=== PATIENT | female | born 1940 | race Caucasian/White ===

== ENCOUNTER 2018-12-04 07:07 | Emergency (ER) | payer MEDICARE, OTHER ==
[2018-12-04] MEDS ORDERED: Clindamycin 600 MG/D5W BAG(*) 600 MG/50 ML BAG IV ONE (07:36)
--- NOTE | 2018-12-04 07:38 | ED ---
Throat Pain/Nasal Congestion - HPI Summary HPI Summary: 78-year-old female presents with dental pain for the past couple days. She states she had a route canal on Friday he was started on penicillin. She states she went home and started to have swelling on right side of her jaw. She denies any shortness of breath or chest pain. No difficulty swallowing. States that the swelling has not improved. She has a history of high blood pressure. She is not diabetic. - History of Current Complaint Chief Complaint: EDDentalPain Time Seen by Provider: 12/04/18 07:17 - Allergies/Home Medications Allergies/Adverse Reactions: Allergies Allergy/AdvReac Type Severity Reaction Status Date / Time ANGELITO Inhibitors Allergy Unknown Verified 10/20/18 14:42 Reaction Details erythromycin base Allergy Itching Verified 10/20/18 14:42 oxymorphone AdvReac Intermediate severe Verified 10/20/18 14:42 itching fentanyl AdvReac Dizziness Verified 10/20/18 14:42 oxycodone AdvReac Itching Verified 10/20/18 14:42 sulfamethoxazole AdvReac Itching Verified 10/20/18 14:42 [From Bactrim] tapentadol [From Nucynta] AdvReac Itching Verified 10/20/18 14:42 trimethoprim [From Bactrim] AdvReac Itching Verified 10/20/18 14:42 PMH/Surg Hx/FS Hx/Imm Hx Endocrine/Hematology History: Denies: Hx Diabetes Cardiovascular History: Reports: Hx Hypertension - MEDICATED Denies: Hx Pacemaker/ICD Respiratory History: Reports: Hx Seasonal Allergies Denies: Hx Asthma Musculoskeletal History: Reports: Hx Arthritis, Hx Back Problems - chronic low back pain, Other Musculoskeletal History - Sprained left knee 06/19/12 Denies: Hx Rheumatoid Arthritis, Hx Osteoporosis Sensory History: Reports: Hx Hearing Aid Psychiatric History: Reports: Hx Depression, Hx Substance Abuse Denies: Hx Panic Disorder - Cancer History Hx Chemotherapy: No Hx Radiation Therapy: No - Surgical History Surgery Procedure, Year, and Place: lsp 3-4 laminectomy, t&a, Infectious Disease History: No Infectious Disease History: Denies: Traveled Outside the [place] in Last 30 Days - Family History Known Family History: Positive: Non-Contributory - Social History Alcohol Use: None Substance Use Type: Reports: None Substance Use Comment - Amount & Last Used: hydrocodone and soma and ativan Smoking Status (MU): Current Every Day Smoker Type: Cigarettes Amount Used/How Often: 1-5 cigarettes/day Have You Smoked in the Last Year: Yes Review of Systems Negative: Fever Positive: Dental Pain Negative: Chest Pain Negative: Shortness Of Breath All Other Systems Reviewed And Are Negative: Yes Physical Exam Triage Information Reviewed: Yes Vital Signs On Initial Exam: Initial Vitals Temp Pulse Resp BP Pulse Ox 98.8 F 75 16 198/94 94 12/04/18 07:08 12/04/18 07:08 12/04/18 07:08 12/04/18 07:08 12/04/18 07:08 Vital Signs Reviewed: Yes Appearance: Positive: Well-Appearing Skin: Positive: Warm, Dry Head/Face: Positive: Normal Head/Face Inspection Eyes: Positive: Normal, EOMI, NORMA, Conjunctiva Clear ENT: Positive: Normal ENT inspection, Pharynx normal, TMs normal Dental: Positive: Other - swelling to right side of jaw Neck: Positive: Supple, Nontender, No Lymphadenopathy Respiratory/Lung Sounds: Positive: Clear to Auscultation, Breath Sounds Present Cardiovascular: Positive: Normal, RRR Abdomen Description: Positive: Nontender, Soft Bowel Sounds: Positive: Present Musculoskeletal: Positive: Normal Neurological: Positive: Normal Psychiatric: Positive: Normal Diagnostics - Vital Signs Vital Signs Temp Pulse Resp BP Pulse Ox 12/04/18 07:08 98.8 F 75 16 198/94 94 - Laboratory Result Diagrams: 12/04/18 07:46 12/04/18 07:46 Lab Statement: Any lab studies that have been ordered have been reviewed, and results considered in the medical decision making process. Re-Evaluation - Re-Evaluation First Eval Re-Evaluation Time: 08:23 Comment: discussed results Second Eval Re-Evaluation Time: 08:37 Comment: will increase norvasc today as bp elevated here likely pain responds will have follow up with primary about such. patient is asymptomatic with blood pressure and do not want to lower too quickly so becomes symptomatic so will lower with the increase in norvasc today EENT Course/Dx - Course Course Of Treatment: 78-year-old female presents with dental pain for the past couple days. She states she had a route canal on Friday he was started on penicillin. She states she went home and started to have swelling on right side of her jaw. She denies any shortness of breath or chest pain. No difficulty swallowing. States that the swelling has not improved. She has a history of high blood pressure. She is not diabetic. On exam has mild swelling noted along right lower jaw. No abscess felt. We'll give dose Clinda. lab work normal. will add on clindamycin. Patient understands agrees with plan. - Differential Diagnoses Differential Diagnoses: Dental Abscess, Dental Caries, Fractured Tooth - Diagnoses Provider Diagnoses: Dental infection, Hypertension Discharge - Sign-Out/Discharge Documenting (check all that apply): Patient Departure Patient Received Moderate/Deep Sedation with Procedure: No - Discharge Plan Condition: Good Disposition: HOME Prescriptions: Clindamycin Cap(NF) [Clindamycin Cap 300 mg Cap(NF)] 300 mg PO TID #20 cap Patient Education Materials: Dental Abscess (ED) Referrals: Stephanie Cerda MD [Primary Care Provider] - Additional Instructions: add on clindamycin three times a day for 7 days take a probiotic take Tylenol every 6 hours as needed for pain follow up with dentist follow up with primary about blood pressure Return to ED if develop any new or worsening symptoms - Billing Disposition and Condition Condition: GOOD Disposition: Home
[2018-12-04 07:58] LABS: ABS Eosinophils 0.1 10^3/ul (0-0.6); ABS Lymphocytes 1.2 10^3/ul (1.0-4.8); ABS Monocytes 0.9 10^3/ul (0-0.8); ABS Neutrophils 4.8 10^3/ul (1.5-7.7); Eosinophil % 1.9 %; Hematocrit 35 % (35-47); Hemoglobin 11.6 g/dL (12.0-16.0); Lymphocyte % 16.6 %; Mean Corpuscular HGB Conc 34 g/dL (31-36); Mean Corpuscular Hemoglobin 33 pg (27-31); Mean Corpuscular Volume 98 fL (80-97); Mean Platelet Volume 7.3 fL (7.4-10.4); Nucleated Red Blood Cells % 0.1; Platelet Count 204 10^3/uL (150-450); Red Blood Count 3.54 10^6 /uL (3.70-4.87); Red Cell Distribution Width 14 % (10.5-15); White Blood Count 7.1 10^3/uL (3.5-10.8)
[2018-12-04] MEDS ORDERED: Clindamycin 600 MG IVPREMIX(* 600 MG/50 ML SDV IV ONE (08:00)
[2018-12-04 08:17] LABS: Albumin/Globulin Ratio 1.7 (1-3); BUN/Creatinine Ratio 14.5 (8-20); Calcium 8.8 mg/dL (8.6-10.3); EGFR Non-African American 106.6 (>60); Globulin 2.3 g/dL (2-4); Potassium 3.6 mmol/L (3.5-5.0); Total Bilirubin 0.5 mg/dL (0.2-1.0); Total Protein 6.3 g/dL (6.4-8.9)
[2018-12-04] MEDS ORDERED: amLODIPine TAB* 5 MG PO ONE (08:34)
[2018-12-04 09:12] VITALS: BP 195/83
== END 2018-12-04 09:12 | disposition home or self-care (01) ==
LOC: ED 07:07
DX: K08.89 Other specified disorders of teeth and supporting structures (principal); I10 Essential (primary) hypertension; M19.90 Unspecified osteoarthritis, unspecified site; F32.9 Major depressive disorder, single episode, unspecified; F17.210 Nicotine dependence, cigarettes, uncomplicated; Z88.8 Allergy status to other drugs, medicaments and biological substances; Z88.3 Allergy status to other anti-infective agents; Z88.2 Allergy status to sulfonamides
CPT/HCPCS: 36415; 80053; 83605; 85025; 96365; 99283; A9270-GY

== ENCOUNTER 2019-05-12 13:53 | Emergency (ER) | payer MEDICARE, OTHER ==
--- OUTSIDE RECORDS SUMMARY | 2019-05-12 14:08 | XMS REPORT | Continuity of Care Document ---
:1940 External Reference #:[id number] Author Name Stephanie Cerda M.D. 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 Onset: 12/19/2011 Chronic pain syndrome Stephanie Cerda M.D. Onset: 05/29/2010 Benign essential hypertension Stephanie Cerda M.D. Onset: 05/29/2010 Palpitations Chastity Myers M.D. Onset: 01/11/2015 Tobacco user Chastity Myers M.D. Onset: 02/08/2015 Chronic pulmonary heart disease Chastity Myers M.D. Onset: 08/24/2015 Mitral valve disorder Chastity Myers M.D. Onset: 08/24/2015 Hypoxemia Michaela Raman MD Onset: 10/10/2015 Obstructive sleep apnea syndrome Michaela Raman MD Onset: 12/14/2015 Glaucoma Stephanie Cerda M.D. 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, nothing since then Recreational Drug Use Never Used Drugs Tobacco Use Start: Unknown Light tobacco smoker 5 (10 or fewer cigarettes/day) Tobacco Use Start: Unknown Patient is a current 2016: down to few smoker, smokes every cigarettes a day day Smoking Status Reviewed: 05/11/19 Patient is a current 2016: down to few smoker, smokes every cigarettes a day day Exercise Type/Frequency Exercises regularly Walks everywhere -- does not own car Allergies, Adverse Reactions, Alerts Active Allergies Reaction Severity Comments Date Erythromycin RASH Moderate 09/07/2009 Oxycodone ITCHING Moderate 09/07/2009 Gareth Inhibitors angioedema Severe 01/06/2010 Medications Active Medications SIG Qnty Indications Ordering Provider Date Chantix Starting take as directed 42tabs Z72.0 [facility], 2018 Month Ion M.D. 0.5mg X 11 & 1 mg X 42 Tablets Amlodipine Besylate 1 by mouth bid 180tabs [facility], 12/16/2018 M.D. 5mg Tablets Carvedilol Take One Tablet 60tabs I10 [facility], 08/07/2015 25mg By Mouth Two M.D. Tablets Times Daily Alendronate Sodium 1 tablet once 12tabs M81.0 [facility], 07/21/2015 weekly. take on M.D. 70mg Tablets empty stomach with 8 oz water. do not eat or lie down for 30 min after taking Lorazepam take one tablet 60tabs [facility], 05/30/2011 1mg Tablets by mouth two M.D. times daily as needed *maximum of two tablets daily* Epipen 2-Ion 1 sc as needed 2units T78.40xA [facility], 04/09/2011 M.D. 0.3mg/0.3ML Solution Auto-Inject Soma 1 tablet every 8 60tabs [facility], 350mg Tablets hours as needed M.D. pt take 4-6 tabs daily Hydrocodone/Acetamin 1 tablet every 4 Unknown ophen hours as needed 10-325mg Tablets Eye Vitamins 1 by mouth every Unknown day Capsules History Medications Amlodipine Besylate 1 by mouth every [facility], 12/09/2018 - 10mg day M.D. 12/16/2018 Tablets Medications Administered in Office Medication SIG Qnty Indications Ordering Provider Date Inj, Regadenoson, 0.1 MG Manny Phelan M.D. 01/23/2015 Injection Inj, Regadenoson, 0.1 MG Chastity Myers M.D. 01/23/2015 Injection Technetium TC 99M Tetrofosmin, Manny Phelan M.D. 01/23/2015 Per Unit Dose Up To 40 Millicuries Injection Technetium TC 99M Tetrofosmin, Chastity Myers M.D. 01/23/2015 Per Unit Dose Up To 40 Millicuries Injection Immunizations CPT Code Status Date Vaccine Reaction Lot # [id number] Given 08/09/2016 Tdap - no immediate reaction [id number] Tetanus/Diptheria/Acellular noted .. hh Pertussis 66072 Given 11/20/2015 Zoster (Zostavax) 45211 Given 12/27/2014 Pneumococcal Conjugate [id number] Vaccine 13 Valent For Intramuscular Use Q2037 Given 04/21/2013 Fluvirin Im 3Yrs And Older Q2038 Given 04/13/2012 Fluzone Vaccine [id number] 19880 Given 04/10/2010 Influenza Virus 3Yrs & Over 89956 Given 03/03/2009 Influenza Virus 3Yrs & Over 07112 Given 12/22/2008 Tetanus And Diptheria (Td) For Adult Use Preservative Free 83269 Given 05/11/2007 Influenza Virus 3Yrs & Over 20383 Given 05/11/2007 Influenza Virus 3Yrs & Over 03254 Given 06/19/2006 Influenza Virus 3Yrs & Over Vital Signs Date Vital Result Comment 05/11/2019 1:41pm Height 62 inches 5'2" Weight 116.00 lb Heart Rate 74 /min BP Systolic 136 mmHg BP Diastolic 73 mmHg O2 % BldC Oximetry 96 % BMI (Body Mass Index) 21.2 kg/m2 03/05/2019 2:41pm Height 62 inches 5'2" Weight 116.00 lb Heart Rate 58 /min BP Systolic 145 mmHg BP Diastolic 71 mmHg BP Systolic Sitting 140 mmHg recheck BP Diastolic Sitting 68 mmHg recheck O2 % BldC Oximetry 95 % BMI (Body Mass Index) 21.2 kg/m2 Results Test Date Facility Test Result H/L Range Note CBC Auto 12/04/2018 [facility] White Blood 7.1 10^3/uL Normal 3.5-10.[address] [place] [address] [phone] Red Blood Count 3.54 10^6/uL Low 3.70-4.87 Hemoglobin 11.6 g/dL Low 12.0-16.0 Hematocrit 35 % Normal 35-47 Mean Corpuscular Volume 98 fL High 80-97 Mean Corpuscular Hemoglobin 33 pg High 27-31 Mean Corpuscular HGB Conc 34 g/dL Normal 31-36 Red Cell Distribution Width 14 % Normal 10.5-15 Platelet Count 204 10^3/uL Normal 150-450 Mean Platelet Volume 7.3 fL Low 7.4-10.4 Abs Neutrophils 4.8 10^3/uL Normal 1.5-7.7 Abs Lymphocytes 1.2 10^3/uL Normal 1.0-4.8 Abs Monocytes 0.9 10^3/uL High 0-0.8 Abs Eosinophils 0.1 10^3/uL Normal 0-0.6 Abs Basophils 0.0 10^3/uL Normal 0-0.2 Abs Nucleated RBC 0.0 10^3/uL Granulocyte % 68.2 % Lymphocyte % 16.6 % Monocyte % 12.9 % Eosinophil % 1.9 % Basophil % 0.4 % Nucleated Red Blood Cells % 0.1 Comp Metabolic 12/04/2018 [facility] Sodium 138 mmol/L Normal 135-[address] [place] [address] [phone] Potassium 3.6 mmol/L Normal 3.5-5.0 Chloride 102 mmol/L Normal 101-111 Co2 Carbon Dioxide 30 mmol/L Normal 22-32 Anion Gap 6 mmol/L Normal 2-11 Glucose 100 mg/dL Normal 70-100 Blood Urea Nitrogen 8 mg/dL Normal 6-24 Creatinine 0.55 mg/dL Normal 0.51-0.95 BUN/Creatinine Ratio 14.5 Normal 8-20 Calcium 8.8 mg/dL Normal 8.6-10.3 Total Protein 6.3 g/dL Low 6.4-8.9 Albumin 4.0 g/dL Normal 3.2-5.2 Globulin 2.3 g/dL Normal 2-4 Albumin/Globulin Ratio 1.7 Normal 1-3 Total Bilirubin 0.50 mg/dL Normal 0.2-1.0 Alkaline Phosphatase 80 U/L Normal 34-104 Alt 8 U/L Normal 7-52 Ast 15 U/L Normal 13-39 Egfr Non- 106.6 >60 Egfr 129.0 >60 1 Laboratory test 12/04/2018 [facility] Lactic Acid 0.4 mmol/L Low 0.5-2.0 [address] [place] [address] [phone] 1 Because ethnic data is not always readily available, this report includes an eGFR for both -Americans and non- Americans. The National Kidney Disease Education Program (NKDEP) does not endorse the use of the MDRD equation for patients that are not between the ages of 18 and 70, are , have extremes of body size, muscle mass, or nutritional status, or are non- or non-. According to the National Kidney Foundation, irrespective of diagnosis, the stage of the disease is based on the level of kidney function: Stage Description GFR(mL/min/1.73 m(2)) 1 Kidney damage with normal or decreased GFR 90 2 Kidney damage with mild decrease in GFR 60-89 3 Moderate decrease in GFR 30-59 4 Severe decrease in GFR 15-29 5 Kidney failure <15 (or dialysis) 2 [facility] Severe Sepsis and Septic Shock Management Bundle Measure requires all lactic acids initially measuring >2.0 mmol/L be repeated. Procedures Date Code Description Status 05/04/2019 63320 Tangential Biopsy Of Skin, Single Lesion Completed 03/31/2019 [id number] Mammogram Completed 08/27/2016 [id number] Bone Mineral Density Test Completed 04/18/2016 [id number] Mammogram Completed 12/21/2014 [id number] Mammogram Completed 02/18/2013 [id number] Bone Mineral Density Test Completed 02/18/2013 [id number] Mammogram Completed 02/18/2012 [id number] Mammogram Completed 02/01/2011 [id number] Bone Mineral Density Test Completed 02/01/2011 [id number] Mammogram Completed 01/31/2009 [id number] Bone Mineral Density Test Completed 01/31/2009 [id number] Mammogram Completed 09/28/2008 [id number] Colonoscopy Completed 08/31/2004 [id number] Mammogram Completed 07/21/2003 [id number] Mammogram Completed 12/13/2002 [id number] Mammogram Completed Medical Devices Description No Information Available Encounters Type Date Location Provider Dx Diagnosis Office Visit 05/04/2019 Complaint Manager Dermatology Irma Arechiga, L82.1 Other seborrheic 2:30p keratosis L98.9 Disorder of the skin and subcutaneous tissue, unspecified Office Visit 11/18/2018 Pulmonology And Janessa G47.33 Obstructive sleep 3:00p [facility] Ju[facility], RN, apnea (adult) [facility] 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 05/04/2019 L82.1 Other seborrheic keratosis Irma Arechiga MD 05/04/2019 L98.9 Disorder of the skin and Irma Arechiga MD subcutaneous tissue, unspecified 03/05/2019 Z00.01 Encounter for general adult medical Stephanie Cerda M.D. examination with abnormal findings 03/05/2019 Z72.0 Tobacco use Stephanie Cerda M.D. 03/05/2019 M81.0 Age-related osteoporosis without Stephanie Cerda M.D. current pathological fracture 03/05/2019 Z12.31 Encounter for screening mammogram Stephanie Cerda M.D. for malignant neoplasm of breast 03/05/2019 L57.0 Actinic keratosis Stephanie Cerda M.D. 12/08/2018 I10 Essential (primary) hypertension Nurse Visit A 11/18/2018 G47.33 Obstructive sleep apnea (adult) Janessa Juárez DNP, RN, (pediatric) [facility]- Plan of Treatment Future Appointment(s):03/07/2020 3:00 pm - Stephanie Cer[facility].D. at [facility] - Stepahnie Cerda M.D. at [facility] 2:15 pm - Janessa Juárez DNP, RN, WET MACHINE OPERATOR-BC at [facility]05/11/2019 - Stephanie Cerda M.D.M25.552 Pain in left hipComments:We will derek you with Xray results Functional Status Description No Information Available Mental Status Description No Information Available Referrals Refer to Reason for Referral Status Appt Date Irma Arechiga MD Sent 05/04/[address] [place] [address], [place] [id number] [phone]
--- NOTE | 2019-05-12 16:17 | ED ---
Lower Extremity - HPI Summary HPI Summary: Pt is a 78 y/o F presenting to the ED with a chief complaint of L hip pain. She fell off of a curb last week and hit the ground hard. Today, she was getting an X-Ray done of her hips when she was sent here for + fracture. The X-Ray showed a small fracture on the L greater trochanter. She denies bruising or pain in the hip itself. She says its only painful if she moves her L leg, mostly in the upper lateral femur. Takes hydrocodone PRN at home. Not on blood thinners. - History of Current Complaint Chief Complaint: EDHipPelvisInjury Stated Complaint: FELL OFF CURVE Time Seen by Provider: 05/12/19 16:00 Hx Obtained From: Patient Mechanism Of Injury: Fall From A Standing Position Onset of Pain: Immediate Onset/Duration: Still Present Severity Initially: Moderate Severity Currently: Moderate Pain Intensity: 5 Pain Scale Used: 0-10 Numeric Timing: Constant, Lasting Days Location: Is Discrete @ - L outer thigh Associated Signs And Symptoms: Positive: Negative Aggravating Factor(s): Movement Alleviating Factor(s): Nothing Able to Bear Weight: Yes - Allergies/Home Medications Allergies/Adverse Reactions: Allergies Allergy/AdvReac Type Severity Reaction Status Date / Time ANGELITO Inhibitors Allergy Unknown Verified 04/27/19 14:57 Reaction Details erythromycin base Allergy Itching Verified 04/27/19 14:57 oxymorphone AdvReac Intermediate severe Verified 04/27/19 14:57 itching fentanyl AdvReac Dizziness Verified 04/27/19 14:57 oxycodone AdvReac Itching Verified 04/27/19 14:57 sulfamethoxazole AdvReac Itching Verified 04/27/19 14:57 [From Bactrim] tapentadol [From Nucynta] AdvReac Itching Verified 04/27/19 14:57 trimethoprim [From Bactrim] AdvReac Itching Verified 04/27/19 14:57 Home Medications: Home Medications Carisoprodol TAB* [Soma TAB*] 350 mg PO Q4HR PRN 05/12/19 [History Confirmed ] Carvedilol TAB* [Coreg TAB*] 25 mg PO BID 05/12/19 [History Confirmed 05/12/19] EPINEPHrine [Epipen 2-Ion] 0.3 mg IM ONCE PRN 05/12/19 [History Confirmed ] Hydrocodone/Acetamin 10325(NF [[place] 10325 (NF)] 0.5 - 1 tab PO Q4HR PRN 05/12 [History Confirmed 05/12/19] LORazepam TAB(*) [Ativan 1 MG TAB (*)] 1 mg PO BID PRN 05/12/19 [History Confirmed 05/12/19] PMH/Surg Hx/FS Hx/Imm Hx Previously Healthy: Yes Endocrine/Hematology History: Denies: Hx Diabetes Cardiovascular History: Reports: Hx Hypertension - MEDICATED Denies: Hx Pacemaker/ICD Respiratory History: Reports: Hx Seasonal Allergies Denies: Hx Asthma Musculoskeletal History: Reports: Hx Arthritis, Hx Back Problems - chronic low back pain, Hx Osteoporosis, Other Musculoskeletal History - Sprained left knee 06/19/12 Denies: Hx Rheumatoid Arthritis Sensory History: Reports: Hx Hearing Aid Psychiatric History: Reports: Hx Depression, Hx Substance Abuse Denies: Hx Panic Disorder - Cancer History Hx Chemotherapy: No Hx Radiation Therapy: No - Surgical History Surgery Procedure, Year, and Place: lsp 3-4 laminectomy. TONSILECTOMY. ADENOIDECTOMY. LT BREAST Bx Infectious Disease History: No Infectious Disease History: Denies: Traveled Outside the [place] in Last 30 Days - Family History Known Family History: Negative: Diabetes - Social History Alcohol Use: None Hx Substance Use: No Substance Use Type: Reports: None Substance Use Comment - Amount & Last Used: hydrocodone and soma and ativan Hx Tobacco Use: Yes Smoking Status (MU): Former Smoker Type: Cigarettes Amount Used/How Often: 1-5 cigarettes/day Have You Smoked in the Last Year: Yes Review of Systems Positive: Myalgia. Negative: Arthralgia - hip Negative: Bruising All Other Systems Reviewed And Are Negative: Yes Physical Exam - Summary Physical Exam Summary: Constitutional: Well-developed, Well-nourished, Alert. (-) Distressed Skin: Warm, Dry HENT: Normocephalic; Atraumatic Eyes: Conjunctiva normal Neck: Musculoskeletal ROM normal neck. (-) JVD, (-) Stridor, (-) Nuchal rigidity Cardio: Rhythm regular, rate normal, Heart sounds normal; Intact distal pulses; Radial pulses are 2+ and symmetric. (-) Murmur Pulmonary/Chest wall: Effort normal. (-) Respiratory distress, (-) Wheezes, (-) Rales Abd: Soft, (-) tenderness, (-) Distension, (-) Guarding, (-) Rebound Musculoskeletal: Pelvis: no soft tissue swelling or discoloration, no palpable widening of symphysis LLE: no deformity effusions, soft tissue swelling or discoloration, no crepitus palpated, compartments soft and compressible SILT 2+ PT pulse FROM of joints without pain Hip: Tenderness of the lateral proximal femur Knee: no ttp, able to SLR, FROM without pain Ankle: no ttp, FROM without pain, no instability Toes: no ttp, FROM without pain Lymph: (-) Cervical adenopathy Neuro: Alert, Oriented x3 Psych: Mood and affect Normal Triage Information Reviewed: Yes Vital Signs On Initial Exam: Initial Vitals Temp Pulse Resp BP Pulse Ox 98.2 F 66 16 162/81 97 05/12/19 13:58 05/12/19 13:58 05/12/19 13:58 05/12/19 13:58 05/12/19 13:58 Vital Signs Reviewed: Yes Procedures - Sedation Patient Received Moderate/Deep Sedation with Procedure: No Diagnostics - Vital Signs Vital Signs Temp Pulse Resp BP Pulse Ox 05/12/19 13:58 98.2 F 66 16 162/81 97 - Laboratory Lab Statement: Any lab studies that have been ordered have been reviewed, and results considered in the medical decision making process. Lower Extremity Course/Dx - Course Course Of Treatment: 78-year-old female presents with left hip pain after a fall 1 week ago. X-ray done outpatient shows a left greater trochanteric fracture, nondisplaced. Patient is ambulatory, minimal pain, discussed w orthopedics he states patient can go home and follow up outpatient. Patient ambulated safely in the department. No other signs of trauma - Diagnoses Provider Diagnoses: Fracture of greater trochanter of left femur Discharge ED - Sign-Out/Discharge Documenting (check all that apply): Patient Departure - Discharge Plan Condition: Stable Disposition: HOME Patient Education Materials: Hip Fracture (ED) Referrals: Stephanie Cerda MD [Primary Care Provider] - Cory Taylor MD [Medical Doctor] - 2 Days Additional Instructions: You were seen in the emergency department for a left hip fracture. Please follow up with orthopedics about this. If any studies were not completed at the time of discharge you will be called with the relevant results. Please follow up with your primary care doctor in next 2-3 days and return to emergency department for worsening pain, inability to walk, or concerning symptoms. It was a pleasure taking care of you today. - Billing Disposition and Condition Condition: STABLE Disposition: Home - Attestation Statements Document Initiated by Abyibkingsley: Yes Documenting Scribe: Cassandra Brooks Provider For Whom Marcela is Documenting (Include Credential): Trever Thomas MD. Scribe Attestation: I, Cassandra Brooks, scribed for Trever Thomas MD. on 05/13/19 at 0759. Scribe Documentation Reviewed: Yes Provider Attestation: The documentation as recorded by the scribe, Cassandra Brooks accurately reflects the service I personally performed and the decisions made by me, Trever Thomas MD. Status of Scribe Document: Viewed Consult Consult: [id number] - I spoke with Dr. Taylor who states the pt is stable to return home and follow-up with him as an outpatient.
[2019-05-12 16:59] VITALS: BP 178/89
== END 2019-05-12 16:55 | disposition home or self-care (01) ==
LOC: ED 13:53
DX: S72.112A Displaced fracture of greater trochanter of left femur, initial encounter for closed fracture (principal); W10.1XXA Fall (on)(from) sidewalk curb, initial encounter; Y92.480 Sidewalk as the place of occurrence of the external cause; I10 Essential (primary) hypertension; F32.9 Major depressive disorder, single episode, unspecified; Z87.891 Personal history of nicotine dependence; Z79.899 Other long term (current) drug therapy; Z88.1 Allergy status to other antibiotic agents; Z88.5 Allergy status to narcotic agent; Z88.2 Allergy status to sulfonamides
CPT/HCPCS: 99282